=== PATIENT | female | born 2000 | race Caucasian/White ===

== ENCOUNTER 2019-12-01 20:41 | Emergency (ER) | payer BC, OTHER ==
[~2019-12-01] VITALS: Ht 170.2 cm; Wt 166.5 kg
[2019-12-01] MEDS ORDERED: CITALOPRAM HBR40 MG PO (21:44)
[2019-12-02 00:35] VITALS: BP 144/70
== END 2019-12-02 00:35 | disposition home or self-care (01) ==
LOC: ER 20:41
DX: J03.90 Acute tonsillitis, unspecified (principal); F31.9 Bipolar disorder, unspecified; J45.909 Unspecified asthma, uncomplicated